=== PATIENT | male | born 1980 | race Caucasian/White ===

== ENCOUNTER 2016-06-28 00:15 | Inpatient (IN) | payer SELFPAY ==
[~2016-06-28] VITALS: Ht 182.9 cm; Wt 67.2 kg
[2016-06-28] VITALS (7 sets, daily range): BP systolic 96–116; BP diastolic 50–65
[~2016-06-28 00:15] MED LIST: DIPH25CA58 PO; HALO5TAB PO; PROM12.56 PO; no home medications
--- NOTE | 2016-06-28 00:39 | ED.ADGEN ---
Past History Past Medical History: Other Past Surgical History: No Surgical History Alcohol Use: None Drug Use: Marijuana Adult General Chief Complaint Chief Complaint "... I got this cyclic vomiting thing again.. it been going on 10 hrs now... I did eat a chicken buritto before onset this time.. ... I did get scoped at [place].. on last admission.. and everything was okay... I usually see Dr. James... but I am not keeping anything down now...".." was trying to keep sipping gaitor aid.. " HPI HPI Patient is a 36 year old male who presents with complaints of intractable vomiting for the past 10 hours. Patient has been previously diagnosed with cyclic vomiting. No specific etiology has been determined. Patient has undergone EGD with no reported abnormalities. Patient denies any bad food, but did have a chicken burrito before onset of nausea and vomiting. Patient denies immunosuppression. Patient denies any illicit drug use. Patient does smoke. No recent travel. No ill contacts. Patient has been hunting [employer] today. Patient normally follows with Dr. James. Patient rates his epigastric pain as 10 out of 10. Nothing makes pain better. Review of Systems Review of Systems Constitutional: subjective hx fever Eyes: Denies change in visual acuity, redness, or eye pain [] HENT: Denies nasal congestion or sore throat [] Respiratory: Denies cough or shortness of breath [] Cardiovascular: No additional information not addressed in HPI [] GI: Complaints of epigastric abdominal pain, nausea, vomiting. Denies bloody stools or diarrhea [] : Denies dysuria or hematuria [] Musculoskeletal: Denies back pain or joint pain [] Integument: Denies rash or skin lesions [] Neurologic: Denies headache, focal weakness or sensory changes [] Endocrine: Denies polyuria or polydipsia [] Family History Family History Noncontributory Current Medications Current Medications Current Medications Medications (Trade) Dose Ordered Sig/Marta Start Time Stop Time Status Last Admin Dose Admin Ceftriaxone Sodium 1 gm/ Sodium Chloride 50 ml @ 100 mls/hr 1X ONCE 06/28/16 03:30 06/28/16 03:59 DC 06/28/16 03:38 100 MLS/HR Ceftriaxone Sodium (Rocephin) 1 gm STK-MED ONCE 06/28/16 03:31 4/23/17 03:32 DC Diphenhydramine HCl (Benadryl) 50 mg 1X ONCE 06/28/16 01:00 06/28/16 01:01 DC 06/28/16 01:37 50 MG Famotidine (Pepcid) 20 mg 1X ONCE 06/28/16 01:00 06/28/16 01:01 DC 06/28/16 01:36 20 MG Info (Do NOT chart on this entry -- for MONITORING) 1 each PRN DAILY PRN 06/28/16 04:15 06/30/16 04:14 Iohexol (Omnipaque 300 Mg/ml) 75 ml 1X ONCE 06/28/16 04:00 06/28/16 04:01 DC 06/28/16 04:04 75 ML Lactated Ringer's (Iv Lactated Ringers) 1,000 ml @ 1,000 mls/hr Q1H 06/28/16 01:00 06/28/16 01:35 1,000 MLS/HR Metronidazole 100 ml @ 200 mls/hr 1X ONCE 06/28/16 04:00 06/28/16 04:29 DC 06/28/16 04:23 200 MLS/HR Morphine Sulfate 10 mg 10 mg 1X ONCE 06/28/16 01:00 06/28/16 01:01 DC 06/28/16 01:37 10 MG Ondansetron HCl (Zofran) 8 mg 1X ONCE 06/28/16 01:00 06/28/16 01:01 DC 06/28/16 01:36 8 MG Promethazine HCl (Phenergan Im) 25 mg 1X ONCE 06/28/16 00:45 06/28/16 00:59 DC 06/28/16 01:38 25 MG Sodium Chloride (Iv Sodium Chloride 0.9% 50ml) 50 ml @ As Directed STK-MED ONCE 06/28/16 03:31 06/28/16 03:32 DC Allergies Allergies Allergies Coded Allergies Type Severity Reaction Last Updated Verified adhesive tape Allergy Intermediate Rash 12/25/15 Yes Physical Exam Physical Exam Constitutional: in acute distress, non-toxic appearance. [] HENT: Normocephalic, atraumatic, bilateral external ears normal, oropharynx moist, no oral exudates, nose normal. Edentulous Eyes: PERRLA, EOMI, conjunctiva normal, no discharge. [] Neck: Normal range of motion, no tenderness, supple, no stridor. [] Cardiovascular: Tachycardia Heart rate, regular rhythm, no murmur [] Lungs & Thorax: Bilateral breath sounds clear to auscultation [] Abdomen: Bowel sounds decreased, soft, epigastric tenderness, no masses, no pulsatile masses. Declines rectal at this time. Mild rebound to epigastric and upper abdomen. Skin: Warm, dry, no erythema, no rash. [] Back: No tenderness, no CVA tenderness. [] Extremities: No tenderness, no cyanosis, no clubbing, ROM intact, no edema. No psoas or obturator sign Neurologic: Alert and oriented X 3, normal motor function, normal sensory function, no focal deficits noted. [] Psychologic: Affect anxious, judgement normal, mood normal. [] Current Patient Data Vital Signs Vital Signs Date Time Temp Pulse Resp B/P Pulse Ox O2 Delivery O2 Flow Rate FiO2 06/28/16 02:07 20 96 Room Air 06/28/16 00:25 98.1 86 Lab Results Laboratory Tests Test 06/28/16 01:25 White Blood Count 19.3x10^3/uL (4.0-11.0) H Red Blood Count 5.55x10^6/uL (4.30-5.70) Hemoglobin 17.2g/dL (13.0-17.5) Hematocrit 50.3% (39.0-53.0) Mean Corpuscular Volume 91fL (79-100) Mean Corpuscular Hemoglobin 31pg (25-35) Mean Corpuscular Hemoglobin Concent 34g/dL (31-37) Red Cell Distribution Width 13.2% (11.5-14.5) Platelet Count 246x10^3/uL (140-400) Neutrophils (%) (Auto) 89% (31-73) H Lymphocytes (%) (Auto) 7% (24-48) L Monocytes (%) (Auto) 4% (0-9) Eosinophils (%) (Auto) 0% (0-3) Basophils (%) (Auto) 0% (0-3) Neutrophils # (Auto) 17.2x10^3uL (1.8-7.7) H Lymphocytes # (Auto) 1.3x10^3/uL (1.0-4.8) Monocytes # (Auto) 0.8x10^3/uL (0.0-1.1) Eosinophils # (Auto) 0.0x10^3/uL (0.0-0.7) Basophils # (Auto) 0.1x10^3/uL (0.0-0.2) Segmented Neutrophils % 79% (35-66) H Band Neutrophils % 7% (0-9) Lymphocytes % 8% (24-48) L Monocytes % 5% (0-10) Basophils % 1% (0-3) Toxic Granulation Slight Toxic Vacuolation Slight Platelet Estimate Adequate (ADEQUATE) Sodium Level 141mmol/L (136-145) Potassium Level 4.0mmol/L (3.5-5.1) Chloride Level 100mmol/L (98-107) Carbon Dioxide Level 26mmol/L (21-32) Anion Gap 15 (6-14) H Blood Urea Nitrogen 12mg/dL (8-26) Creatinine 1.1mg/dL (0.7-1.3) Estimated GFR (Cockcroft-Gault) 74.9 Glucose Level 155mg/dL (70-99) H Calcium Level 10.1mg/dL (8.5-10.1) Total Bilirubin 1.4mg/dL (0.2-1.0) H Direct Bilirubin 0.3mg/dL (0.0-0.2) H Aspartate Amino Transferase (AST) 13U/L (15-37) L Alanine Aminotransferase (ALT) 12U/L (16-63) L Alkaline Phosphatase 88U/L (46-116) Total Protein 7.9g/dL (6.4-8.2) Albumin 4.9g/dL (3.4-5.0) Amylase Level 44U/L (25-115) Lipase 45U/L (73-393) L EKG EKG [] Radiology/Procedures Radiology/Procedures Interpretation of abdomen film shows minimal stool and nonspecific bowel gas pattern. No free air in the diaphragm. No acute cardiopulmonary findings. CT of abdomen shows mild cold wall thickening consistent with possible colitis. No free air. [] Course & Med Decision Making Course & Med Decision Making Pertinent Labs and Imaging studies reviewed. (See chart for details) Discussed presentation, testing and tx. plan with Dr. Brockert. Will admit for further hydration and tx. . Urine still pending at time of admission [] Final Impression Final Impression 1. Hx. of Cyclic Vomiting[] 2. Leukocytosis with Segs 3. Dehydration 4. Epigastric Pain 5. Colitis Problems: Dragon Disclaimer Dragon Disclaimer This electronic medical record was generated, in whole or in part, using a voice recognition dictation system. DARY CARRASCO MD Jun 28, 2016 00:39
[2016-06-28] MEDS ORDERED: PROMETHAZINE IM 25 MG/ML VIAL IM ONE (00:45)
[2016-06-28] MEDS ORDERED: IV RINGERS SOLUTION,LACTATED 1,000 ML IV SCH (01:00)
[2016-06-28] MEDS ORDERED: MORPHINE SULFATE 10 MG/ML SYRINGE. SQ ONE ×2 (01:00→06:15)
[2016-06-28] MEDS ORDERED: ONDANSETRON PF 4 MG/2 ML VIAL. IV ONE (01:00)
[2016-06-28] MEDS ORDERED: DIPHENHYDRAMINE 50 MG/ML VIAL IV ONE (01:00)
[2016-06-28] MEDS ORDERED: FAMOTIDINE 20 MG/2 ML VIAL IVP ONE (01:00)
[2016-06-28 01:38] LABS: BASO # 0.1 x10^3/uL (0.0-0.2); BASO % 0 % (0-3); EOS % 0 % (0-3); HEMATOCRIT 50.3 % (39.0-53.0); HEMOGLOBIN 17.2 g/dL (13.0-17.5); LYMPH # 1.3 x10^3/uL (1.0-4.8); LYMPH % 7 % (24-48); MEAN CORPUSCULAR HEMOGLOBIN 31 pg (25-35); MEAN CORPUSCULAR HGB CONC 34 g/dL (31-37); MEAN CORPUSCULAR VOLUME 91 fL (79-100); MONO # 0.8 x10^3/uL (0.0-1.1); MONO % 4 % (0-9); NEUT # 17.2 x10^3uL (1.8-7.7); NEUT % 89 % (31-73); PLATELET COUNT 246 x10^3/uL (140-400); RED BLOOD COUNT 5.55 x10^6/uL (4.30-5.70); RED CELL DISTRIBUTION WIDTH 13.2 % (11.5-14.5); WHITE BLOOD COUNT 19.3 x10^3/uL (4.0-11.0)
[2016-06-28 01:53] LABS: ALBUMIN 4.9 g/dL (3.4-5.0); CALCIUM 10.1 mg/dL (8.5-10.1); CREATININE 1.1 mg/dL (0.7-1.3); DIRECT BILIRUBIN 0.3 mg/dL (0.0-0.2); GFR 74.9; TOTAL BILIRUBIN 1.4 mg/dL (0.2-1.0); TOTAL PROTEIN 7.9 g/dL (6.4-8.2)
[2016-06-28 02:44] LABS: % BANDS 7 % (0-9); % BASOS 1 % (0-3); % LYMPHS 8 % (24-48); % MONOS 5 % (0-10); % SEGS 79 % (35-66); PLT ESTIMATE ADEQUATE (ADEQUATE); TOXIC GRANULATION SLIGHT; TOXIC VACUOLATION SLIGHT
[2016-06-28] MEDS ORDERED: CEFTRIAXONE SODIUM 1 GM in IV NORMAL SALINE 50ML 50 ML IV ONE (03:30)
[2016-06-28] MEDS ORDERED: CEFTRIAXONE SODIUM 1 GM VIAL IV ONE (03:31)
[2016-06-28] MEDS ORDERED: IV NORMAL SALINE 50ML 50 ML ONE (03:31)
[2016-06-28] MEDS ORDERED: METRONIDAZOLE 500mg PREMIX 100 ML IV ONE (04:00)
[2016-06-28] MEDS ORDERED: IOHEXOL 300 MG/ML 75 ML VIAL. IV ONE (04:00)
[2016-06-28] MEDS ORDERED: CONTRAST GIVEN MC PRN (04:15)
--- NOTE | 2016-06-28 04:25 | ACF ---
Admission Criteria Forms VOMITING Clinical Indications for Admission to Inpatient Care ( Place 'X' for any and all applicable criteria): Admission is indicated for 1 or more of the following(1)(2)(3): [ ]I. Complete or partial gastrointestinal obstruction [ ]II. Vomiting due to significant metabolic derangement (eg, severe hypercalcemia, diabetic ketoacidosis) [ ]III. Other cause of vomiting requiring hospitalization (eg, poisoning, increased intracranial pressure) [X]IV. Inpatient admission required rather than observation care because of 1 or more of the following [ ]i) Hemodynamic instability [X]ii) Vomiting that is severe or persistent indicated by 1 or more of the following [X] 1) Numerous episodes of vomiting in past 24hours (eg, every 1 to 2 hours) 2) Suggests severe underlying cause or complication (eg , projectile, feculent, bilious, coffee ground, bloody) 3) Appropriate antiemetic treatment (eg, repeated oral or parenteral dosing) does not sufficiently reduce vomiting within 12 to 24 hours of treatment 4) Treatment regimen necessary to adequately control vomiting requires inpatient level of care (eg, not immediately available in outpatient setting) [ ]iii) Severe electrolyte abnormalities requiring inpatient care [ ]iv) Severe pain requiring acute inpatient management( Continuous or frequent (eg, every 2 to 4 hours) parental analgesics or analgesic regimen that can only be performed or initiated in inpatient setting) [ ]v) High fever or infection requiring inpatient admission as indicated by 1 or more of the following(7)(8): [ ]1) Appropriate outpatient or observation care antimicrobial treatment unavailable, not effective, or not feasible [ ]2) Documented bacteremia [ ]3) Temp >104.9 degrees F (40.5 degrees C) (oral) [ ]4) Temp >103.1 degrees F (39.5 C) (oral) or <96.8 degrees F (36 C) (rectal) that does not respond to all emergency treatment measures [ ]vi) Acute renal failure [ ]vii) IV fluid required rather than oral rehydration to replace significant on going losses (greater than 3 L/m2 per day) [ ]viii) Parenteral nutrition regimen that must be implemented on inpatient basis [ ]ix) Other condition, treatment or monitoring requiring inpatient admission Extended stay beyond goal length of stay may be needed for(1)(4): [ ]a) Severe vomiting [ ]b) Persistent vomiting, vital sign changes, severe electrolyte imbalance , or diagnosed cause of vomiting that requires continued hospitalization (eg, gastrointestinal obstruction , increased intracranial pressure) [ ]c) Surgery to treat identified causes of vomiting (eg, bowel obstruction , intracranial process) [ ]d) Comorbid illness that requires inpatient care (eg, acute heart failure , renal failure) [ ]e) Need for inpatient endoscopy The original [facility] content created by [employer] has been revised. The portions of the content which have been revised are identified through the use of italic text or in bold, and [facility] has neither reviewed nor approved the modified material. All other unmodified content is copyright [employer]. Please see references footnoted in the original [facility] edition 2016 Admission Criteria Met?: Yes LOLY GUTIERREZ Jun 28, 2016 04:25
--- NOTE | 2016-06-28 04:25 | RAD ---
PROCEDURE CT abdomen with contrast 06/28/2016. HISTORY Persistent nausea and vomiting. TECHNIQUE CT images were obtained through the abdomen using an infusion of 75 milliliters Omnipaque 300. The patient could not tolerate ingesting oral contrast. Exposure: One or more of the following individualized dose reduction techniques were utilized for this exam: 1. Automated exposure control. 2. Adjustment of the mA and/or kV according to patient size. 3. Use of iterative reconstruction technique. COMPARISON FINDINGS The lung bases are clear. The liver and spleen are homogeneous in density and normal in configuration. Both kidneys enhance with contrast. No mass or obstruction is seen. The adrenal glands are not enlarged. The pancreas appears normal. No retroperitoneal or mesenteric adenopathy is seen. Evaluation of the GI tract is somewhat limited by lack of oral contrast. There may be some mild colon wall thickening. If real, this could indicate colitis. No other inflammatory process is seen. The area of the appendix is not included on this study. IMPRESSION Possible changes of mild colitis. No other acute findings. Electronically signed by: Jama Voss (Jun 28, 2016 04:24:19)
[2016-06-28] MEDS ORDERED: ONDANSETRON PF 4 MG/2 ML VIAL. IV PRN (06:00)
[2016-06-28] MEDS ORDERED: DIPHENHYDRAMINE 50 MG/ML VIAL IV PRN (06:00)
[2016-06-28] MEDS: IV RINGERS SOLUTION,LACTATED 1,000 ML IV SCH ×4 (06:00→21:52)
[2016-06-28] MEDS ORDERED: PYRIDOXINE 100 MG/ML VIAL. IV ONE (08:15)
[2016-06-28] MEDS ORDERED: DEXAMETHASONE SOD PHOS 4 MG/ML VIAL IV ONE (08:15)
[2016-06-28] MEDS: MVI, ADULT NO.4 WITH VIT K 10 ML, FOLIC ACID 1 MG, THIAMINE 100 MG in IV DEXTROSE 5 %-0... IV SCH ×4 (08:32)
[2016-06-28] MEDS: PANTOPRAZOLE IV PUSH 40 MG VIAL. IVP SCH (08:33)
--- NOTE | 2016-06-28 09:15 | RAD ---
Acute abdominal series to include a PA chest radiograph 06/28/2016 Clinical History: Nausea and vomiting for 10 hours. Two PA digital radiographs of the chest were obtained. 2 AP supine and an erect AP digital radiographs of the abdomen/pelvis were obtained. No previous studies are available for comparison. The cardiac and mediastinal silhouettes are within normal limits in size and configuration. No pulmonary infiltrate is seen. No pleural effusion or pneumothorax is noted. The abdominal bowel gas pattern is nonobstructive. There is no evidence of free air. No radiopaque calculus is seen. Small calcified phleboliths are seen within the pelvis. The osseous structures are grossly intact. Impression: Negative study.
--- NOTE | 2016-06-28 10:00 | NUR ---
The patient, FERN MORENO, 36 y/o, M admitted by RAY NASSAR MD, was given written information regarding hospital policies, unit procedures and contact persons. Valuables were checked and documented. Patient complains of abdominal pain and is tired. Dr. James saw the patient at the bedside and reviewed his medications and medical history. Patient's girlfriend left and came back at lunchtime, patient resting.
--- NOTE | 2016-06-28 12:48 | HP ---
ADMIT DATE: 06/28/2016 REASON FOR ADMISSION: Intractable vomiting. HISTORY OF PRESENT ILLNESS: This is a 36-year-old male with history of cyclical vomiting syndrome. He presented to the Emergency Room complaining of intractable vomiting for the past 10 hours. He was fine until he ate some tacos and after that he just started to vomit. PAST MEDICAL HISTORY: Several admissions for cyclical vomiting syndrome. He had an EEG at [facility] and had a biopsy done, which he stated was negative. He did have a reaction in an hospitalization to Haldol, which was given for nausea, other past medical history daily marijuana use. SOCIAL HISTORY: He is a nonsmoker. 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 REVIEW OF SYSTEMS: The patient weight has been steady. No fever, no sore throat, no shortness of breath, no chest pain, no diarrhea, just abdominal pain from throwing up he states. OBJECTIVE: VITAL SIGNS: Blood pressure 100/57, pulse 81, respirations 20, temperature 98.2, pulse ox 97% on room air. Height 72 inches, weight 148.44 pounds. GENERAL: A 36-year-old, in no acute distress. Not currently vomiting. HEENT: His eyes were clear. His tongue was moist. He has no teeth. NECK: Supple. LUNGS: Clear. CARDIOVASCULAR: Regular rhythm and rate. ABDOMEN: Soft, he does have some midepigastric tenderness. No masses palpated. EXTREMITIES: Without edema. NEUROLOGIC: He is intact. LABORATORY DATA: White blood cell count is 19.3 with a slight left shift. Chemistry: Bilirubin 1.4, direct bilirubin 0.3. Transaminases are negative. Lipase is negative. ASSESSMENT: 1. Acute gastroenteritis. 2. Leukocytosis without fever, possibly inflammatory versus sepsis. 3. Cyclical vomiting syndrome. PLAN: IV fluids, he has been started on metronidazole and ceftriaxone and we will slowly clear liquids as he can tolerate. YOKO LICONA DO DR: ROSIE/rico JOB#: [id number] / [id number]
[2016-06-28] MEDS: METRONIDAZOLE 500mg PREMIX 100 ML IV SCH ×2 (14:13→21:52)
[2016-06-28] MEDS: KETOROLAC 30 MG/ML VIAL. IV PRN (15:35)
[2016-06-28 17:54] LABS: BILIRUBIN,URINE NEG (NEG); CLARITY,URINE CLEAR; COLOR,URINE AMBER; GLUCOSE,URINE NEG (NEG); NITRITE,URINE NEG (NEG); UROBILINOGEN,URINE 1 mg/dL (0.2 mg/dL)
[2016-06-28 17:56] LABS: BACTERIA,URINE 0 /HPF (0-FEW); RBC,URINE OCC /HPF (0-2); SQUAMOUS EPITHELIAL CELL,UR FEW /LPF
[2016-06-28] MEDS ORDERED: MORPHINE SULFATE 4 MG/ML DISP.SYRIN. IV ONE (20:30)
[2016-06-28 22:06] LABS: HCV ANTIBODY <0.1 s/co ratio (0.0-0.9); HEP A IGM ABDY Negative (Negative)
[2016-06-29 03:45] VITALS: BP 111/57
[2016-06-29] MEDS: IV RINGERS SOLUTION,LACTATED 1,000 ML IV SCH ×5 (03:52→22:09)
[2016-06-29] MEDS: KETOROLAC 30 MG/ML VIAL. IV PRN ×2 (03:54→21:17)
[2016-06-29] MEDS: CEFTRIAXONE SODIUM 1 GM in IV NORMAL SALINE 50ML 50 ML IV SCH (04:26)
[2016-06-29] MEDS ORDERED: IV NORMAL SALINE 250ML 250 ML ONE (04:31)
[2016-06-29] MEDS: METRONIDAZOLE 500mg PREMIX 100 ML IV SCH ×3 (05:34→21:16)
[2016-06-29 05:35] VITALS: BP 117/67
[2016-06-29 06:36] LABS: ALBUMIN 3.3 g/dL (3.4-5.0); ALBUMIN/GLOBULIN RATIO 1.3 (1.0-1.7); CALCIUM 8.6 mg/dL (8.5-10.1); CREATININE 0.9 mg/dL (0.7-1.3); GFR 94.4; POTASSIUM 3.9 mmol/L (3.5-5.1); TOTAL BILIRUBIN 0.7 mg/dL (0.2-1.0); TOTAL PROTEIN 5.8 g/dL (6.4-8.2)
[2016-06-29 07:07] LABS: BASO % 0 % (0-3); EOS % 0 % (0-3); HEMOGLOBIN 13.9 g/dL (13.0-17.5); LYMPH # 2.2 x10^3/uL (1.0-4.8); LYMPH % 20 % (24-48); MEAN CORPUSCULAR HEMOGLOBIN 31 pg (25-35); MEAN CORPUSCULAR HGB CONC 34 g/dL (31-37); MEAN CORPUSCULAR VOLUME 92 fL (79-100); MONO # 0.6 x10^3/uL (0.0-1.1); MONO % 6 % (0-9); NEUT % 73 % (31-73); PLATELET COUNT 174 x10^3/uL (140-400); RED BLOOD COUNT 4.46 x10^6/uL (4.30-5.70); RED CELL DISTRIBUTION WIDTH 13.2 % (11.5-14.5); WHITE BLOOD COUNT 10.9 x10^3/uL (4.0-11.0)
[2016-06-29] MEDS: PANTOPRAZOLE IV PUSH 40 MG VIAL. IVP SCH (07:55)
[2016-06-29] MEDS: MVI, ADULT NO.4 WITH VIT K 10 ML, FOLIC ACID 1 MG, THIAMINE 100 MG in IV DEXTROSE 5 %-0... IV SCH ×4 (08:53)
[2016-06-29 11:13] VITALS: BP 107/65
[2016-06-29 15:36] VITALS: BP 123/73
--- NOTE | 2016-06-29 18:37 | PN ---
DATE: 06/29/2016 SUBJECTIVE: The patient is sitting slightly propped up in bed, in no apparent respiratory distress. He is awake, alert, continues to have some nausea, but no vomiting. He is able to tolerate some clear liquid diet and Jell-O but has not been able to advance his diet yet. He has continued to have some abdominal pain. PHYSICAL EXAMINATION: GENERAL: When I examined him, he looked slightly pale, but no jaundice, cyanosis, or thyromegaly. No jugular venous distention. No limb edema. VITAL SIGNS: His heart rate was 69, blood pressure was 107/65, temperature was 98.1, respiratory rate 20 and oxygen saturation was 99%. The rest of clinical examination is unremarkable, has not really changed. His intake over the last 24 hours was 2915, output was 900. LABORATORY DATA: As of this morning, his white cell count was 10,900, hemoglobin 14, hematocrit 41, MCV 92 and platelet count of 174,000 with normal manual differential. His chemistry showed a serum sodium 144, potassium 3.9, chloride 106, bicarbonate 31, anion gap of 7, BUN 14, creatinine 0.9. Estimated GFR was 94 mL per minute. His glucose was 87. Calcium was 8.6. Total bilirubin, AST, ALT, alkaline phosphatase were normal. Total protein was 5.8, albumin 3.3. Amylase and lipase were normal. So far, his blood cultures are negative. IMAGING STUDIES: CT scan of the abdomen and pelvis without contrast showed that there might be some mild colon wall thickening ____ this could indicate colitis, no other inflammatory process seen, the area of the appendix is not included in the study. PLAN: My plan is obviously to continue with IV fluid, continue with IV antibiotic in the form of ceftriaxone and metronidazole, repeat his lab work tomorrow and if he is having any diarrhea, we will send stool for C. diff and also for culture and sensitivity. We will repeat his lab work, continue with current medication and if his symptoms improve, he can be discharged to continue treatment as an outpatient. KELSI SAMUEL MD DR: BECKY/rico JOB#: [id number] / [id number]
[2016-06-29 19:35] VITALS: BP 117/74
[2016-06-30 00:30] VITALS: BP 112/69
[2016-06-30] MEDS: CEFTRIAXONE SODIUM 1 GM in IV NORMAL SALINE 50ML 50 ML IV SCH (04:42)
[2016-06-30] MEDS: METRONIDAZOLE 500mg PREMIX 100 ML IV SCH ×2 (05:29→13:32)
[2016-06-30] MEDS: IV RINGERS SOLUTION,LACTATED 1,000 ML IV SCH (05:48)
[2016-06-30] MEDS: PANTOPRAZOLE IV PUSH 40 MG VIAL. IVP SCH (05:49)
[2016-06-30 06:00] VITALS: BP 125/82
[2016-06-30] MEDS: ONDANSETRON PF 4 MG/2 ML VIAL. IV PRN ×2 (06:15→16:29)
[2016-06-30 06:52] LABS: BASO # 0.1 x10^3/uL (0.0-0.2); BASO % 1 % (0-3); EOS # 0.1 x10^3/uL (0.0-0.7); EOS % 1 % (0-3); HEMATOCRIT 40.2 % (39.0-53.0); LYMPH # 2.5 x10^3/uL (1.0-4.8); LYMPH % 34 % (24-48); MEAN CORPUSCULAR HEMOGLOBIN 32 pg (25-35); MEAN CORPUSCULAR HGB CONC 35 g/dL (31-37); MEAN CORPUSCULAR VOLUME 91 fL (79-100); MONO # 0.6 x10^3/uL (0.0-1.1); MONO % 7 % (0-9); NEUT # 4.4 x10^3uL (1.8-7.7); NEUT % 58 % (31-73); PLATELET COUNT 158 x10^3/uL (140-400); RED BLOOD COUNT 4.41 x10^6/uL (4.30-5.70); WHITE BLOOD COUNT 7.6 x10^3/uL (4.0-11.0)
[2016-06-30 07:02] LABS: CALCIUM 8.5 mg/dL (8.5-10.1); GFR 83.6; POTASSIUM 3.5 mmol/L (3.5-5.1)
[2016-06-30 07:56] VITALS: BP 138/85
[2016-06-30] MEDS: MVI, ADULT NO.4 WITH VIT K 10 ML, FOLIC ACID 1 MG, THIAMINE 100 MG in IV DEXTROSE 5 %-0... IV SCH ×4 (08:16)
[2016-06-30] MEDS ORDERED: FENTANYL PF 250 MCG/5 ML VIAL. IV PRN (08:45)
[2016-06-30] MEDS: FENTANYL PF 100 MCG/2 ML VIAL. IV PRN ×2 (09:00→13:31)
[2016-06-30 13:00] VITALS: BP 125/78
--- NOTE | 2016-06-30 15:00 | NUR ---
Report called to ALEA Montoya at [facility] ref pt transfer for intractable N/V, consult to Dr. Appiah, orders for CBC, CMP and stool for C/S, EMS notified
--- NOTE | 2016-06-30 15:26 | NUR ---
Carol Ann at EMS notified of transport request
[2016-06-30 18:43] VITALS: BP 111/61
--- NOTE | 2016-06-30 19:30 | NUR ---
EMS here for transport to [facility]. Report had been called to [facility] be prior shift, ALEA Bond. Report was given to EMS. IVF dc'd for transport. All belongings sent with pt.
--- NOTE | 2016-06-30 22:35 | DS ---
DATE OF DISCHARGE: 06/30/2016 DISCHARGE AND TRANSFER SUMMARY HOSPITAL COURSE: The patient was admitted with recurrent bouts of nausea and vomiting. He has had several admissions before for cyclical vomiting syndrome. He apparently had an EGD and biopsy done, which was negative. He did have reaction to Haldol ____ nausea and vomiting. Other past medical history is daily use of marijuana and he was admitted with acute gastroenteritis. On admission, he had also marked leukocytosis without any fever. CT scan showed that he has possible changes of mild colitis. No other acute finding. He did have one loose bowel movement today and one yesterday but he again started having recurrent bouts of nausea and vomiting this morning and was unable to eat or drink, keep anything and therefore, a decision was made to transfer him to [facility] for further evaluation by the Gastroenterology team. PHYSICAL EXAMINATION: GENERAL: When I examined him this afternoon, he was resting slightly propped up in bed, in no apparent respiratory distress, pale, but no jaundice, cyanosis, or thyromegaly. No jugular venous distention. No limb edema. VITAL SIGNS: His heart rate was 70, blood pressure was 138/85, temperature was 98.2, respiratory rate 20 and oxygen saturation was 100% on room air. HEAD, EYES, EARS, NOSE AND THROAT: Normocephalic, atraumatic. NECK: Supple. HEART: Showed normal first and second sounds. No gallop, rub or murmur. CHEST: Clear to auscultation. No crepitation or rhonchi. ABDOMEN: Distended, soft, nontender. NEUROLOGIC: He is awake, alert, responding appropriately. Cranial nerves are intact. He moves extremities without difficulty. He ambulates without assistance or assistive devices. His intake over the last 24 hours was 5565, output was 2900. LABORATORY DATA: His lab work this morning showed that his white cell count came down to 7600 from 19,300, hemoglobin 14, hematocrit 40, MCV 91 and platelet count of 158,000. His chemistry showed a serum sodium 144, potassium 3.5, chloride 107, bicarbonate 31, anion gap of 6, BUN 8, creatinine 1, estimated GFR was 84 mL per minute. His glucose was 83 and calcium was 8.5. Total bilirubin, AST, ALT and alkaline phosphatase were normal. Total protein 5.8, albumin 3.3. His amylase and lipase were normal. DISCHARGE MEDICATIONS: The patient will be transferred to [facility] to continue with fentanyl citrate 50 mcg IV q.4h. as needed for pain, Zofran 4 mg IV every 6 hours, ceftriaxone 1 g IV once a day, Flagyl 500 mg IV q.8h., Protonix 40 mg IV daily and diphenhydramine 50 mg q.i.d. FINAL DISCHARGE DIAGNOSES: Intractable nausea and vomiting, questionable gastroenteritis. The patient's symptoms were mostly nausea and vomiting. His CT scan showed he has mild thickening of the colon. He has 2 episodes of loose bowel movements, one yesterday and one today. KELSI SAMUEL MD DR: BECKY/rico JOB#: [id number] / [id number]
== END 2016-06-30 19:30 | disposition short-term general hospital (02) | DRG 392 ==
LOC: ER 00:15 → ICU 05:44
PROVIDERS: ADMIT Family Medicine; ATTEND Family Medicine
DX: K52.9 Noninfective gastroenteritis and colitis, unspecified (principal); G43.A0 Cyclical vomiting, in migraine, not intractable; D72.829 Elevated white blood cell count, unspecified; E86.0 Dehydration; F12.90 Cannabis use, unspecified, uncomplicated; F17.200 Nicotine dependence, unspecified, uncomplicated; Z88.8 Allergy status to other drugs, medicaments and biological substances
CPT/HCPCS: 36415; 74022; 74160; 80048; 80053; 80074; 80076; 81001; 82150; 83690; 85007; 85027; 87040; 87045; 87641; 96361; 96365; 96372; 96375; C9113; J0696; J1100; J1200; J1885; J2270; J2405; J2550; J3010; J3415; J3490; J7120; Q9967; S0028; 99285-25

== ENCOUNTER 2020-01-11 10:39 | Emergency (ER) | payer SELFPAY ==
[~2020-01-11] VITALS: Ht 182.9 cm; Wt 79.3 kg
[~2020-01-11 10:39] MED LIST changes: -PROM12.56 PO; +PROM12.58 PO
[2020-01-11] MEDS ORDERED: METOCLOPRAMIDE HCL 10 MG/2 ML VIAL. IVP ONE (11:00)
[2020-01-11] MEDS ORDERED: KETOROLAC 15 MG/ML VIAL. IVP ONE (11:00)
[2020-01-11] MEDS ORDERED: diphenhydrAMINE 50 MG/ML VIAL IVP ONE (11:00)
[2020-01-11] MEDS ORDERED: FAMOTIDINE 20 MG/2 ML VIAL IVP ONE (11:00)
--- NOTE | 2020-01-11 11:04 | PHYS DOC ---
Past History Past Medical History: Other Additional Past Medical Histor: CYCLIC VOMITING Past Surgical History: No Surgical History Alcohol Use: None Drug Use: Marijuana General Adult EDM: Chief Complaint: ABDOMINAL PAIN HPI: HPI: Patient is a 39-year-old male who presents to the ED with vomiting for the past 30 hours. He does have a history of smoking marijuana and having similar symptoms in the past. Associated mild epigastric pain. Denies any alleviating or aggravating factors. Denies any diarrhea, chest pain, SOB or cough. Review of Systems: Review of Systems: Constitutional: Denies fever or chills Eyes: Denies change in visual acuity Constitutional: Denies fever or chills Eyes: Denies redness or eye pain HENT: Denies nasal congestion or sore throat Respiratory: Denies cough or shortness of breath Cardiovascular: Denies chest pain or palpitations GI: Reports abdominal pain, nausea, and vomiting: Denies diarrhea : Denies dysuria or hematuria Musculoskeletal: Denies back pain or joint pain Integument: Denies rash or skin lesions Neurologic: Denies headache, focal weakness or sensory changes Complete systems were reviewed and found to be within normal limits, except as documented in this note. Allergies: Allergies: Allergies Coded Allergies Type Severity Reaction Last Updated Verified adhesive tape Allergy Intermediate Rash 01/11/20 Yes Physical Exam: PE: Constitutional: Well developed, well nourished, no acute distress, non-toxic appearance HENT: Normocephalic, atraumatic, oral mucosa dry Eyes: PERRL, EOMI, conjunctiva normal, no discharge Neck: Normal range of motion, no tenderness, supple Lungs & Thorax: No respiratory distress, equal chest rise and fall Abdomen: Soft, mild generalized tenderness. Skin: Warm, dry, no erythema, no rash Back: No tenderness, no CVA tenderness Extremities: No tenderness, ROM intact, no edema Neurologic: Alert and oriented X 3, normal motor function, normal sensory function, no focal deficits noted Psychologic: Affect normal, judgment normal Current Patient Data: Vital Signs: Vital Signs Date Time Temp Pulse Resp B/P (MAP) Pulse Ox O2 Delivery O2 Flow Rate FiO2 01/11/20 10:45 98.4 95 18 149/90 (109) 97 Room Air EKG: EKG: [] Radiology/Procedures: Radiology/Procedures: [] Course & Med Decision Making: Course & Med Decision Making Pertinent Labs studies reviewed. (See chart for details) Pt is a 39 y/o male who presents with nause and vomiting. Patient smoke marijuana and states he has had many similar episodes to this in the past. Melinda Disclaimer: Melinda Disclaimer: This electronic medical record was generated, in whole or in part, using a voice recognition dictation system. Departure Departure: Impression: Primary Impression: Cyclical vomiting syndrome Disposition: 01 DC HOME SELF CARE/HOMELESS Condition: STABLE Referrals: CYNTHIA LICONA DO (PCP) JIMENA WORKMAN MD Patient Instructions: Cyclic Vomiting Syndrome, Marijuana Abuse and Chemical Dependency Scripts Promethazine Hcl (PROMETHAZINE HCL) 25 Mg Supp.rect 25 MG RC TID PRN PRN for NAUSEA, #10 SUPP.RECT Prov: CRISTIN FOURNIER DO 01/11/20 Capsaicin (CAPSAICIN) 42.5 Gm Cream..g. 1 JOSÉ LUIS TP TID PRN for PAIN, #1 TUBE 0 Refills Prov: CRISTIN FOURNIER DO 01/11/20 Famotidine (PEPCID) 20 Mg Tablet 1 TAB PO BID for Gastritis, #20 TAB Prov: CRISTIN FOURNIER DO 01/11/20 Ondansetron (ONDANSETRON ODT) 4 Mg Tab.rapdis 1 TAB PO PRN Q6-8HRS PRN for NAUSEA, #16 TAB Prov: CRISTIN FOURNIER DO 01/11/20 CRISTIN FOURNIER DO Jan 11, 2020 11:04
[2020-01-11 11:41] LABS: BASO # 0.1 x10^3/uL (0.0-0.2); BASO % 1 % (0-3); EOS % 0 % (0-3); HEMATOCRIT 47.3 % (39.0-53.0); HEMOGLOBIN 16.2 g/dL (13.0-17.5); LYMPH % 10 % (24-48); MEAN CORPUSCULAR HEMOGLOBIN 31 pg (25-35); MEAN CORPUSCULAR HGB CONC 34 g/dL (31-37); MEAN CORPUSCULAR VOLUME 90 fL (79-100); MONO # 0.5 x10^3/uL (0.0-1.1); MONO % 5 % (0-9); NEUT # 9.1 x10^3uL (1.8-7.7); NEUT % 85 % (31-73); PLATELET COUNT 273 x10^3/uL (140-400); RED BLOOD COUNT 5.26 x10^6/uL (4.30-5.70); RED CELL DISTRIBUTION WIDTH 12.9 % (11.5-14.5); WHITE BLOOD COUNT 10.7 x10^3/uL (4.0-11.0)
[2020-01-11] MEDS ORDERED: IV NORMAL SALINE 1,000ML 1,000 ML IV ONE (11:45)
[2020-01-11 11:49] LABS: CALCIUM 9.8 mg/dL (8.5-10.1); CREATININE 1.1 mg/dL (0.7-1.3); GFR 73.8; POTASSIUM 3.5 mmol/L (3.5-5.1)
[2020-01-11 11:55] LABS: ALBUMIN 4.4 g/dL (3.4-5.0); ALBUMIN/GLOBULIN RATIO 1.2 (1.0-1.7); MAGNESIUM 2.3 mg/dL (1.8-2.4); TOTAL PROTEIN 8.1 g/dL (6.4-8.2)
[2020-01-11] MEDS ORDERED: ONDANSETRON PF 4 MG/2 ML VIAL. IVP ONE (15:30)
[2020-01-11] MEDS ORDERED: ONDA4TAB12 PO (15:41)
[2020-01-11] MEDS ORDERED: CAPS42.514 TP (15:41)
[2020-01-11] MEDS ORDERED: PROM25SU33 RC (15:41)
[2020-01-11] MEDS ORDERED: FAMO-63 PO (15:41)
[2020-01-11 15:45] VITALS: BP 137/84
== END 2020-01-11 15:52 | disposition home or self-care (01) ==
LOC: ER 10:39
DX: R11.15 Cyclical vomiting syndrome unrelated to migraine (principal); R10.13 Epigastric pain; Z88.8 Allergy status to other drugs, medicaments and biological substances
CPT/HCPCS: 36415; 80053; 83690; 83735; 85025; 96361; 96374; 96375; 99285; J1200; J1885; J2405; J2765; J3490; J7030

== ENCOUNTER 2020-01-14 08:53 | Emergency (ER) | payer SELFPAY ==
[~2020-01-14] VITALS: Ht 182.9 cm; Wt 79.3 kg
[~2020-01-14 08:53] MED LIST changes: +CAPS42.514 TP; +FAMO-63 PO; +ONDA4TAB12 PO; +PROM25SU33 RC
[2020-01-14 08:55] VITALS: BP 115/77
[2020-01-14] MEDS ORDERED: ONDANSETRON ODT 4 MG TAB.RAPDIS PO ONE (09:15)
[2020-01-14] MEDS ORDERED: LIDO:MAALOX 1:1 20 ML SINGLE DOSE. PO ONE (09:15)
--- NOTE | 2020-01-14 09:24 | PHYS DOC ---
Past History Past Medical History: Other Additional Past Medical Histor: CYCLIC VOMITING Past Surgical History: No Surgical History Alcohol Use: None Drug Use: Marijuana General Adult EDM: Chief Complaint: NAUSEA/VOMITING/DIARRHEA HPI: HPI: 39-year-old male presents with nausea and vomiting. He states that he has been having a lot of nasal drainage he feels like it is make him nauseated and makes him vomit. Once he gets started he vomits "everything up". In the patient home he has been having problems with nausea and vomiting for about 10 years. He has been scoped, he tried multiple medications, even gave up marijuana for whole year and still has nausea and intermittent vomiting symptoms. He does not really have any new symptoms today. He states that the vomiting tends to happen when he tries to lay down. He uses marijuana every other day up to every day. He denies fever or chills. Review of Systems: Review of Systems: Constitutional: Denies fever or chills Eyes: Denies change in visual acuity HENT: Denies nasal congestion or sore throat Respiratory: Denies cough or shortness of breath Cardiovascular: Denies chest pain or edema GI: nausea, vomiting. Denies abdominal pain, bloody stools or diarrhea : Denies dysuria Musculoskeletal: Denies back pain or joint pain Integument: Denies rash Neurologic: Denies headache, focal weakness or sensory changes Endocrine: Denies polyuria or polydipsia Lymphatic: Denies swollen glands Psychiatric: Denies depression or anxiety Current Medications: Current Meds: Current Medications Medications (Trade) Dose Ordered Sig/Marta Start Time Stop Time Status Last Admin Dose Admin Multi-Ingredient Mouthwash/Gargle (Gi Cocktail) 20 ml 1X ONCE 01/14/20 09:15 01/14/20 09:16 DC 01/14/20 09:15 20 ML Ondansetron HCl (Zofran Odt) 4 mg 1X ONCE 01/14/20 09:15 01/14/20 09:16 DC 01/14/20 09:15 4 MG Allergies: Allergies: Allergies Coded Allergies Type Severity Reaction Last Updated Verified adhesive tape Allergy Intermediate Rash 01/11/20 Yes Physical Exam: PE: Constitutional: Well developed, well nourished, no acute distress, non-toxic appearance. [] HENT: Normocephalic, atraumatic, bilateral external ears normal, oropharynx moist, no oral exudates, nose normal. [] Eyes: PERRLA, EOMI, conjunctiva normal, no discharge. [] Neck: Normal range of motion, no tenderness, supple, no stridor. [] Cardiovascular: Heart rate regular rhythm, no murmur [] Lungs & Thorax: Bilateral breath sounds clear to auscultation [] Abdomen: Bowel sounds normal, soft, no tenderness, no masses, no pulsatile masses. [] Skin: Warm, dry, no erythema, no rash. [] Back: No tenderness, no CVA tenderness. [] Extremities: No tenderness, no cyanosis, no clubbing, ROM intact, no edema. [] Neurologic: Alert and oriented X 3, normal motor function, normal sensory function, no focal deficits noted. [] Psychologic: Affect normal, judgement normal, mood anxious. [] EKG: EKG: [] Radiology/Procedures: Radiology/Procedures: [] Heart Score: Risk Factors: Risk Factors: DM, Current or recent (<one month) smoker, HTN, HLP, family history of CAD, obesity. Risk Scores: Score 0 - 3: 2.5% MACE over next 6 weeks - Discharge Home Score 4 - 6: 20.3% MACE over next 6 weeks - Admit for Clinical Observation Score 7 - 10: 72.7% MACE over next 6 weeks - Early Invasive Strategies Course & Med Decision Making: Course & Med Decision Making Pertinent Labs and Imaging studies reviewed. (See chart for details) The patient did not have any vomiting in the with his previous work-ups and all the different medications she has tried, I do not have anything else to offer. He needs to stop using marijuana and follow-up with GI. I will give him a prescription for capsaicin cream to see if it helps. He is stable for discharge at this time. [] Dragon Disclaimer: Melinda Disclaimer: This electronic medical record was generated, in whole or in part, using a voice recognition dictation system. Departure Departure: Impression: Primary Impression: Cyclical vomiting syndrome Disposition: 01 DC HOME SELF CARE/HOMELESS Condition: STABLE Referrals: CYNTHIA LICONA DO (PCP) Patient Instructions: Cyclic Vomiting Syndrome Scripts Ondansetron (ONDANSETRON ODT) 4 Mg Tab.rapdis 1 TAB PO PRN Q6-8HRS PRN for VOMITING, #16 TAB Prov: CORBY WELCH DO 01/14/20 Capsaicin (CAPSAICIN) 42.5 Gm Cream..g. 1 JOSÉ LUIS TP TID PRN for VOMITING, #[address] a thin layer on your abdomen Prov: CORBY WELCH DO 01/14/20 CORBY WELCH DO Jan 14, 2020 09:24
[2020-01-14] MEDS ORDERED: CAPS42.514 TP (10:05)
[2020-01-14] MEDS ORDERED: ONDA4TAB12 PO (10:05)
== END 2020-01-14 10:10 | disposition home or self-care (01) ==
LOC: ER 08:53
DX: R11.15 Cyclical vomiting syndrome unrelated to migraine (principal); F12.10 Cannabis abuse, uncomplicated; Z88.8 Allergy status to other drugs, medicaments and biological substances
CPT/HCPCS: 99283; Q0162